=== PATIENT | female | born 2005 | race Two or more races ===

== ENCOUNTER 2025-09-12 21:00 | Emergency (ER) | payer MEDICAID, SELFPAY ==
[2025-09-12 21:01] VITALS: BMI 36.3
[2025-09-12 21:19] VITALS: BP 132/76; PULSE 89; RESP 18; TEMP 37.8; O2SAT 97
[2025-09-12] MEDS: DEXAMETHASONE SOD PHOS INJ 10 MG/ML VIAL IM (21:47)
[2025-09-12] MEDS: ALBUTEROL/IPRATROPIUM (Duoneb) RT SOL 3 ML NEBU INH (21:56)
[2025-09-12 22:18] VITALS: PULSE 97; RESP 21; O2SAT 99
[2025-09-12 23:55] VITALS: BP 123/77; PULSE 96; RESP 18; TEMP 37.2; O2SAT 96
[2025-09-12 23:59] VITALS: BP 123/77; PULSE 98; RESP 18; TEMP 37.2; O2SAT 99
== END 2025-09-13 00:08 | disposition home or self-care (01) ==
LOC: SERX 22:41
PROVIDERS: Emergency Provider Emergency Medicine
DX: Z53.21 Procedure and treatment not carried out due to patient leaving prior to being seen by health care provider (principal)
CPT/HCPCS: 94640; 96372; 99282; A9270; J1100